=== PATIENT | male | born 1995 | race Caucasian/White ===

== ENCOUNTER 2021-09-23 14:25 | Emergency (ER) | payer OTHER ==
[~2021-09-23] VITALS: Ht 182.9 cm; Wt 90.0 kg
[2021-09-23] VITALS (10 sets, daily range): BP systolic 110–129; BP diastolic 65–84
== END 2021-09-23 18:52 | disposition home or self-care (01) | DRG 556 ==
LOC: ED 14:25
PROC: 0HBRXZZ Excision of Toe Nail, External Approach (ICD-10-PCS; principal; 2021-09-23)
PROC: 0HBRXZZ Excision of Toe Nail, External Approach (ICD-10-PCS; 2021-09-23)
DX: M25.511 Pain in right shoulder (principal); M79.661 Pain in right lower leg; L60.0 Ingrowing nail; Y00.XXXA Assault by blunt object, initial encounter; Y93.H2 Activity, gardening and landscaping; Y92.148 Other place in prison as the place of occurrence of the external cause